=== PATIENT | female | born 1945 ===

== ENCOUNTER 2017-11-29 11:00 | Day surgery (SDC) | payer OTHER | END 2017-11-29 16:05 | disposition home or self-care (01) | LOC: AMB-ENDOS 11:00 | DX: D12.2 Benign neoplasm of ascending colon (principal); D12.0 Benign neoplasm of cecum; D12.3 Benign neoplasm of transverse colon; D12.5 Benign neoplasm of sigmoid colon; D12.8 Benign neoplasm of rectum; Z12.11 Encounter for screening for malignant neoplasm of colon ==

== ENCOUNTER 2021-06-16 01:35 | Emergency (ER) | payer OTHER ==
[~2021-06-16] VITALS: Ht 157.5 cm; Wt 63.5 kg
[2021-06-16] MEDS ORDERED: LEVOTHYROXINE25 MCG PO (01:50)
[2021-06-16] MEDS ORDERED: CRESTOR10 MG PO (01:50)
[2021-06-16] MEDS ORDERED: TOPROL XL25 M1 PO (01:51)
== END 2021-06-16 11:49 | disposition designated cancer center or children's hospital (05) ==
LOC: ER
DX: I44.1 Atrioventricular block, second degree (principal); R00.1 Bradycardia, unspecified; I10 Essential (primary) hypertension; Z88.5 Allergy status to narcotic agent; Z91.013 Allergy to seafood

== ENCOUNTER 2021-08-23 05:42 | Emergency (ER) | payer OTHER ==
[~2021-08-23] VITALS: Ht 157.5 cm; Wt 62.6 kg
[~2021-08-23 05:42] MED LIST: CRESTOR10 MG PO; LEVOTHYROXINE25 MCG PO; TOPROL XL25 M1 PO
== END 2021-08-23 14:25 | disposition home or self-care (01) ==
LOC: ER 05:42
DX: R00.2 Palpitations (principal); Z88.5 Allergy status to narcotic agent; Z91.013 Allergy to seafood